=== PATIENT | male | born 1940 | race Caucasian/White ===

== ENCOUNTER → 2018-11-24 | Outpatient (REF) | payer MEDICARE, OTHER | LOC: M LAB REF 09:12 | PROVIDERS: ATTEND Physician Assistant Medical | DX: R30.0 Dysuria (principal) ==

== ENCOUNTER → 2019-05-09 | Outpatient (CLI) | payer OTHER ==
--- NOTE | 2019-05-09 14:16 | REP ---
Bilateral arterial Doppler lower extremity ultrasound: History: Personal history of venous thrombosis and embolism. Peripheral vascular disease. Findings: The ankle brachial indices could not be acquired on either side due to noncompressible vessels. Mild to moderate plaquing is seen diffusely. Heavily calcified vessel ramey are observed distally bilaterally. Disparate velocities are observed in the common femoral arteries, right less than left; question inflow disease on the right versus stenosis on the left. No other evidence of significant stenosis is seen. Monophasic waveforms are noted in the posterior tibial arteries bilaterally. Right lower extremity arterial Doppler velocity chart: Right CF A 82 cm/S Profunda 73 Proximal SFA 113 Mid SFA 142 Distal SFA 141 Popliteal 93 Proximal AT A 55 Tibioperoneal trunk 79 Proximal HR ADVISOR 74 Distal HR ADVISOR 139 Distal AT A 152 Left lower extremity arterial Doppler velocity chart: Left CF A 136 cm/S Profunda 91 Proximal SFA 123 Mid SFA 142 Distal SFA 142 Popliteal 55 Proximal AT A 117 Tibioperoneal trunk 107 Proximal HR ADVISOR 30 Distal HR ADVISOR 100 Distal AT A 107 Electronically Signed by Jesús Morillo MD 05/09/2019 02:07 P
== END ==
LOC: M RAD 10:22
PROVIDERS: ATTEND Physician Assistant
DX: I73.9 Peripheral vascular disease, unspecified (principal); M79.661 Pain in right lower leg; M79.662 Pain in left lower leg; Z86.711 Personal history of pulmonary embolism; Z86.718 Personal history of other venous thrombosis and embolism

== ENCOUNTER 2019-05-24 06:05 | Day surgery (SDC) | payer OTHER ==
[~2019-05-24] VITALS: Ht 188 cm; Wt 128.4 kg
[~2019-05-24 06:05] MED LIST: AMLO-360 PO; FERR325T3 PO; LEVE1INJ5 SC; LEVO137T2 PO; LR 1,000 ML IV ONE; NOVOINJ3 SC; OMEP10CASR PO; SERT25TA85 PO; SIMV40TA20 PO; STIO1AER IN; VITA500079 PO; XARE10TA PO; ceFAZolin SOD 2 GM in IV 1 EA IV ONE
[2019-05-24] MEDS ORDERED: ROCURONIUM BROMIDE 50 MG/5 ML VIAL As Ordered ONE (07:13)
[2019-05-24] MEDS ORDERED: LIDOCAINE 2% INJ 100 MG/5 ML SDV (FOR ANES.) As Ordered ONE (07:13)
[2019-05-24] MEDS ORDERED: fentaNYL 250 MCG/5 ML INJECTION (J3010) As Ordered ONE (07:13)
[2019-05-24] MEDS ORDERED: propofoL 200 MG/20 ML VIAL As Ordered ONE (07:13)
[2019-05-24] MEDS ORDERED: MIDAZOLAM INJ 2 MG/2 ML VIAL (J2250) As Ordered ONE (07:13)
[2019-05-24] MEDS ORDERED: BUPIVACAINE HCL 0.25% 30 ML VIAL As Ordered ONE (07:14)
[2019-05-24] MEDS ORDERED: LIDOCAINE 1% SDV INJ 30 ML VIAL As Ordered ONE (07:14)
[2019-05-24] MEDS ORDERED: SCOPOLAMINE 1MG TRANSDERMAL PATCH As Ordered ONE (07:20)
[2019-05-24] MEDS ORDERED: SCOPOLAMINE 1MG TRANSDERMAL PATCH TOP ONE (07:30)
[2019-05-24] MEDS ORDERED: METOCLOPRAMIDE INJ 10MG/2ML VIAL (J2765) As Ordered ONE ×2 (08:00→08:02)
[2019-05-24] MEDS ORDERED: KETOROLAC 60 MG/2 ML VIAL (J1885) As Ordered ONE ×2 (08:00→08:02)
[2019-05-24] MEDS ORDERED: ONDANSETRON 4MG/2ML VIAL (J2405) As Ordered ONE ×2 (08:00→08:02)
[2019-05-24] MEDS ORDERED: diphenhydrAMINE INJ 50MG/ML VIAL (J1200) As Ordered ONE (08:02)
[2019-05-24] MEDS ORDERED: ACETAMINOPHEN 1000MG 100ML IV BTL (OFIRMEV) (J0131 PER 10MG) As Ordered ONE (08:05)
[2019-05-24] MEDS ORDERED: SUGAMMADEX SODIUM 500 MG/5 ML VIAL (BRIDION) As Ordered ONE (08:05)
[2019-05-24] MEDS ORDERED: NORC1TAB7 PO (09:02)
--- NOTE | 2019-05-24 09:04 | ROOPDOC ---
[facility] Report Of Operation Report of Operation DATE OF PROCEDURE: 05/24/19 PREPROCEDURE DIAGNOSES: umbilical hernia. POSTPROCEDURE DIAGNOSES: umbilical hernia. PROCEDURE: Umbilical Hernia Repair. SURGEON: Sebastian Pereira MD CORN CUTTER OPERATOR: ANESTHESIA: General Anesthesia. ESTIMATED BLOOD LOSS: Approximately 10 mL. COMPLICATIONS: none. REMARKS: 2x1 cm defect at the umbilicus containing preperitoneal fat tissue. PROCEDURE NOTE: 6.4 cm ventral patch mesh placed at a preperitoneal pocket with closure of defect. DESCRIPTION OF PROCEDURE Patient was given 2 g Ancef IV preoperatively for surgical prophylaxis. He was brought to the operating room, placed supine on the table. Compression boots were placed on both lower extremities for DVT prophylaxis. Gen. endotracheal anesthesia started. His abdomen was widely prepped and draped in usual sterile f ashion.We paused for a surgical timeout using both pre-incision safety checklist to verify correct patient, procedure site and additional clinical information prior to beginning the procedure Patient has a (1.5 cm) small nodular bulging at the top of the umbilical cleft consistent with a small umbilical hernia. This appears to be partially incarcerated though on general anesthesia this promptly reduced. The area around the umbilicus was widely infiltrated with local anesthesia using 1% lidocaine and 1/4% Marcaine mixture. A curvilinear skin incision was created at the bottom of the umbilical cleft and slowly deepened through the subcutaneous tissue. Umbilical skin cleft was dissected free off the underlying tissues. The left over fatty tissue attached to umbilical cleft was debrided. The fascial opening this roughly about 2 x 1 cm oriented more transversely. The fascia surrounding the hernia opening was cleared. I used my finger to swept inside look for any adhesions or bowels underneath. I lifted the fascia and a preperitoneal pocket was circumferentially opened up and dissected to accommodate the mesh. I then introduced a piece of 4 x 4 gauze to further dissect the preperitoneal pocket. The peritoneal opening was sutured with 2-0 Vicryl. After checking for hemostasis, a 6.4 cm round ventral patch mesh was introduced into the preperitoneal pocket and made sure that it was lying flat. The mesh was secured to the anterior fascia with 0 Ethibond at the 12 and 6 o'clock position. The subcutaneous tissue was dissected free off the anterior fascia for about 2 cm. The edges were freshened up and appears to be able to come together without t ension. This was closed with mattress sutures of 0 vicrl incorporating part of the flap of the mesh on closure which was trimmed off. The umbilical cleft id tacked back in its anatomic position using 3-0 Vicryl. Subcutaneous space was closed with interrupted sutures of 3-0 Vicryl. Subcuticular suture using 4-0 Monocryl was then used to close the skin. Steri-Strips and gauze dressings were placed for wound coverage. Patient tolerated procedure well. Was promptly awakened, extubated and brought to recovery room in stable condition. SEBASTIAN PEREIRA MD May 24, 2019 09:04
[2019-05-24] MEDS ORDERED: NORCO, ANEXSIA 5/325MG TABLET (HYDROcodone/ACETAMINOPHEN) PO PRN (09:15)
[2019-05-24] MEDS ORDERED: oxyCODONE 5MG TAB PO PRN (09:15)
[2019-05-24] MEDS ORDERED: LR 1,000 ML IV SCH (09:15)
[2019-05-24] MEDS ORDERED: ONDANSETRON 4MG/2ML VIAL (J2405) IV PRN ×2 (09:15)
[2019-05-24] MEDS ORDERED: HYDROMORPHONE HCL 0.5 MG/ 0.5 ML SYRINGE (J1170 PER 1) IV PRN (09:15)
[2019-05-24] MEDS ORDERED: fentaNYL 100 MCG/2 ML INJECTION (J3010) IV PRN (09:15)
[2019-05-24] MEDS ORDERED: LABETALOL HCL 100 MG/20 ML VIAL As Ordered ONE (09:30)
[2019-05-24 10:55] VITALS: BP 148/69
[2019-05-24] MEDS ORDERED: KETOROLAC 30 MG/ML VIAL (J1885) IV PRN (15:00)
== END 2019-05-24 11:15 | disposition home or self-care (01) ==
LOC: M SDC 06:05
PROVIDERS: ATTEND Surgery
DX: K42.9 Umbilical hernia without obstruction or gangrene (principal); E11.9 Type 2 diabetes mellitus without complications; I10 Essential (primary) hypertension; K21.9 Gastro-esophageal reflux disease without esophagitis; K44.9 Diaphragmatic hernia without obstruction or gangrene; F32.9 Major depressive disorder, single episode, unspecified; Z87.891 Personal history of nicotine dependence; Z79.01 Long term (current) use of anticoagulants; Z79.899 Other long term (current) drug therapy; Z79.4 Long term (current) use of insulin
CPT/HCPCS: 49585; C1781; J0131; J0690; J1200; J1885; J2250; J2405; J2765; J3010

== ENCOUNTER → 2019-07-15 | Outpatient (CLI) | payer OTHER ==
[~2019-07-15] MED LIST changes: +ISOVUE-300 61% 50ML VIAL As Ordered ONE; +LIDOCAINE 1% MDV 20ML VIAL As Ordered ONE; -LR 1,000 ML IV ONE; +MIDAZOLAM INJ 2MG/2ML VIAL (J2250 PER 1MG) As Ordered ONE; +NORC1TAB7 PO; -ceFAZolin SOD 2 GM in IV 1 EA IV ONE; +fentaNYL 100 MCG/2 ML INJECTION (J3010) As Ordered ONE
[2019-07-15 09:12] LABS: HEMATOCRIT 37.6 % (42.0-52.0); HEMOGLOBIN 12.2 g/dl (13.5-17.5); MEAN CORPUSCULAR HEMOGLOBIN 28.8 pg (27.0-33.0); MEAN CORPUSCULAR HGB CONC 32.4 g/dl (32.0-36.5); MEAN CORPUSCULAR VOLUME 88.9 fl (80.0-96.0); PLATELET COUNT, AUTOMATED 168 10^3/uL (150-450); RED BLOOD COUNT 4.23 10^6/uL (4.30-6.10); WHITE BLOOD COUNT 6.4 10^3/uL (4.0-10.0)
[2019-07-15 09:38] LABS: ALBUMIN 3.5 GM/DL (3.2-5.2); ALT/SGPT 38 U/L (12-78); BILIRUBIN,TOTAL 0.3 MG/DL (0.2-1.0); BLOOD UREA NITROGEN 26 MG/DL (7-18); CARBON DIOXIDE LEVEL 30 MEQ/L (21-32); CHLORIDE LEVEL 104 MEQ/L (98-107); GLOMERULAR FILTRATION RATE > 60.0 (>42); GLUCOSE, FASTING 173 MG/DL (70-100); POTASSIUM SERUM 3.9 MEQ/L (3.5-5.1); SODIUM LEVEL 139 MEQ/L (136-145); TOTAL PROTEIN 7.9 GM/DL (6.4-8.2)
--- NOTE | 2019-07-15 10:23 | ROOPDOC ---
[facility] Report Of Operation Report of Operation DATE OF PROCEDURE: 07/15/19 PREPROCEDURE DIAGNOSES: Atherosclerosis the andreafski vessels with leg pain, tingling, numbness POSTPROCEDURE DIAGNOSES: Same PROCEDURE: 1. Ultrasound-guided access right common femoral artery 2. Aortoiliofemoral arteriogram 3. Selection of left common femoral artery and left superficial femoral artery with left lower extremity runoff 4. Mynx closure right common femoral artery SURGEON: Isaura Baires MD ANESTHESIA: Local anesthesia 6 mL lidocaine. Moderate intravenous conscious sedation was supervised by Dr. Baires. The patient was independently monitored by a registered nurse assigned to the Department of radiology using automated blood pressure, EKG, and pulse oximetry. The detailed sedation record is permanently stored in the hospital information system. The following is a brief sedation record: Start time 09:31, stop time 09:50, Versed 0.5 mg IV, fentanyl 25 g IV. CONTRAST: 27 mL Isovue-300 INDICATION FOR PROCEDURE: Mr. Meraz is a 78-year-old gentleman with lower extremity pain, numbness and tingling. After discussing with the patient, I'm not sure a displaced classic claudication symptoms so much as neurogenic symptoms, and he does have a history of lower back surgery and interventions. However, his arterial duplex did suggest possible inflow disease in the right iliac system and distal external iliac versus common femoral artery disease on the left. Therefore, to rule out arterial disease is a confounding factor for his extremity issues, we discussed the risks benefits and alternatives to an arteriogram potential intervention. He is agreeable to proceed. Informed consent was obtained. INTERPRETATION: 1. The aortoiliofemoral segments are mildly calcified and ectatic, not flow- limiting, and overall large and widely patent. The common iliac arteries, hypogastric arteries, and external iliac artery showed no flow-limiting stenosis. 2. The left common femoral artery is widely patent and runs off 3 widely patent profunda and superficial femoral artery. The superficial femoral artery has mild plaque that is not flow-limiting, and runs off through a widely patent popliteal artery. There are small areas of the popliteal artery that are obstructed by orthopedic hardware, but the flow past these areas is a very rapid without any inhibition, and I do not suspect that we are missing stenosis behind hardware based on how rapidly flow passes through this area. The patient has widely patent and large tibial vessels, and has 3 vessel runoff through the anterior tibial artery, peroneal artery, and posterior tibial artery all the way to the distal foot. No significant tibial disease is noted. REPORT OF OPERATION: The patient was brought to the angiographic suite in stable condition. His bilateral groins were prepped and draped in a sterile fashion. A timeout was performed. Sedation was administered without complication. Local anesthesia was administered to the skin and subcutaneous tissue over the right groin. A microneedle was used to access the artery under ultrasound guidance. A wire was passed through this access under fluoroscopic guidance and the needle was removed. A 4 [place] glide sheath was placed and flushed with saline. Through this access, a Glidewire and Omni flushed catheter were advanced into the distal aorta. Aortoiliofemoral arteriograms were performed. Please interpretation above. We then went up and over the bifurcation with the Glidewire and Omni flushed catheter and selected the left common femoral artery. Further left lower extremity arteriograms were performed. We then selected the left superficial femoral artery and advanced the catheter into the mid left superficial femoral artery and runoff of the left lower extremity was performed. Please interpretation above. Following this, we did not see any flow-limiting stenoses that required intervention. Therefore, the sheath was exchanged over the wire for 5 [place] sheath and a Mynx closure device was deployed. Pressure was held over the access site for 10 minutes and sterile dressings were applied. The patient was taken to recovery in stable condition. There were no complications. The patient tolerated the procedure and the sedation well. ESTIMATED BLOOD LOSS: Approximately 5 mL. COMPLICATIONS: None. PLAN: It is okay for the patient to resume his home diet medications. We will see him back within a week to check his right groin access site. At this time, no vascular intervention is required and we recommend the patient follow up with his primary care doctor to discuss any further workup that might be necessary for his neurogenic symptoms. We appreciate the opportunity to participate in the care of this patient. ISAURA BAIRES MD July 15, 2019 10:23
[2019-07-15 12:25] VITALS: BP 166/79
== END ==
LOC: M IRPRO 08:28
PROVIDERS: ATTEND Surgery Vascular Surgery
DX: I70.222 Atherosclerosis of native arteries of extremities with rest pain, left leg (principal); I70.212 Atherosclerosis of native arteries of extremities with intermittent claudication, left leg; I87.2 Venous insufficiency (chronic) (peripheral); Z79.01 Long term (current) use of anticoagulants; Z79.84 Long term (current) use of oral hypoglycemic drugs; Z79.899 Other long term (current) drug therapy; Z86.718 Personal history of other venous thrombosis and embolism; Z87.891 Personal history of nicotine dependence; Z88.8 Allergy status to other drugs, medicaments and biological substances
CPT/HCPCS: 36247; 75630; 75774; 80053; 85027; 99152; C1760; C1769; C1887; C1894; G0269; J1644; J2250; J3010; Q9967

== ENCOUNTER 2020-06-23 14:45 | Emergency (ER) | payer OTHER ==
[~2020-06-23] VITALS: Ht 188 cm; Wt 125.5 kg
[~2020-06-23 14:45] MED LIST changes: -ISOVUE-300 61% 50ML VIAL As Ordered ONE; -LIDOCAINE 1% MDV 20ML VIAL As Ordered ONE; -MIDAZOLAM INJ 2MG/2ML VIAL (J2250 PER 1MG) As Ordered ONE; -fentaNYL 100 MCG/2 ML INJECTION (J3010) As Ordered ONE
--- NOTE | 2020-06-23 15:25 | REP ---
INDICATION: fall/takes xarelto. COMPARISON: None. TECHNIQUE: Axial CT images with multiplanar reformations. FINDINGS: No acute bleed or fracture. Ventricles, cisterns and sulci are within normal limits. No mass effect or midline shift. No abnormal fluid collections. A few scattered hypodensities, are noted with a more significant hypodensity adjacent to the right caudate, are most consistent with sequelae of chronic microvascular ischemic disease. Paranasal sinuses and mastoid air cells are clear. IMPRESSION: No acute findings. <Electronically signed by Torrey Hopkins > 06/23/20 1524
--- NOTE | 2020-06-23 15:37 | REP ---
INDICATION: fall/takes xarelto. COMPARISON: None. TECHNIQUE: Axial CT images with multiplanar reformations. FINDINGS: No acute fracture or malalignment. There is straightening of the cervical spine absence of normal cervical lordosis. There is severe degenerative change with loss of disc height, anterior osteophytic spurring, and degenerative vertebral body flattening. The craniovertebral junction appears unremarkable. There is partial fusion of C2 and C3 both anterior and posterior elements. On the sagittal T2 weighted images, no definite or high-grade osseous canal stenosis. On the review of axial images: At C2-3: Disc-osteophyte complex with dtau-ln-veygqzqi canal narrowing and moderate bilateral foraminal narrowing. At C3-4: Disc-osteophyte complex with bjpx-zb-bmngxqdq canal narrowing and moderate bilateral foraminal narrowing. At C4-5: Disc-osteophyte complex with wojt-gn-hnykdneq canal narrowing and moderate bilateral foraminal narrowing. At C5-6: Disc-osteophyte complex with hjsm-sa-dxrocsls canal narrowing and moderate bilateral foraminal narrowing. At C6-7: Disc-osteophyte complex with slux-mi-tndxbyan canal narrowing and moderate bilateral foraminal narrowing, greater on the right. At C7-T1: No significant canal or foraminal narrowing. IMPRESSION: No acute findings. Degenerative changes as described. <Electronically signed by Torrey Hopkins > 06/23/20 1530
[2020-06-23] MEDS ORDERED: ACETAMINOPHEN 500 MG TAB PO ONE (16:45)
--- NOTE | 2020-06-23 21:15 | REPVR ---
PROCEDURE INFORMATION: Exam: MR Cervical Spine Without Contrast Exam date and time: 06/23/2020 7:56 PM Age: 79 years old Clinical indication: Injury or trauma; Fall; Blunt trauma; Injury date: 06/18; Injury details: PT tripped and fell face down, when he went to get up he had no strength or ability to move in either arm and then when feeling came back there was still weakness and tingling in bilateral hands. PT cx of continued weakness in arms today but not as bad, and also continued tingling and numbness in his hands. ; Additional info: Trauma - paresthesias in upper extremity ? central cord TECHNIQUE: Imaging protocol: Multiplanar magnetic resonance images of the cervical spine without contrast. COMPARISON: CT Spine,cervical w/o contrast 06/23/2020 2:57 PM FINDINGS: Nonspecific straightening. Mild retrolisthesis of C4 on C5. Grade 1 anterolisthesis of C5 on C6. Vertebral body heights are preserved. Multilevel disc desiccation and disc space narrowing. No definite increased cord signal or cord expansion. No epidural fluid collection. C2-C3: Mild to moderate disc osteophyte complex with bilateral uncinate spurring. There is bnmw-dw-hbxsyrot central canal stenosis and moderate bilateral foraminal stenosis. C3-C4: Moderate disc osteophyte complex with bilateral uncinate spurring. There is severe central canal stenosis and severe bilateral foraminal stenosis. C4-C5: Moderate to large disc osteophyte complex with bilateral uncinate spurring. Severe central canal stenosis and severe bilateral foraminal stenosis. C5-C6: Cvzb-oi-rlnmumai disc osteophyte complex with bilateral uncinate spurring. There is mild central canal stenosis and severe bilateral foraminal stenosis. C6-C7: Ocjw-sa-zdvmspxk disc osteophyte complex with bilateral uncinate spurring. Mild central canal stenosis and severe bilateral foraminal stenosis. C7-T1: Mild disc osteophyte complex without significant stenosis. IMPRESSION: Severe central canal stenosis at C3-C4 and C4-C5 as above with mass effect upon the cervical cord. Surgical consultation is recommended. Electronically signed by: Fredy Stephen On 06/23/2020 21:15:54 PM
--- NOTE | 2020-06-23 21:17 | REPVR ---
PROCEDURE INFORMATION: Exam: MR Thoracic Spine Without Contrast Exam date and time: 06/23/2020 7:56 PM Age: 79 years old Clinical indication: Injury or trauma; Blunt trauma (contusions or hematomas); Injury date: Fall 06/18; Injury details: PT tripped and fell face down, when he went to get up he had no strength or ability to move in either arm and then when feeling came back there was still weakness and tingling in bilateral hands. PT cx of continued weakness in arms today but not as bad, and also continued tingling and numbness in his hands. ; Additional info: Trauma - paresthesias in upper extremity ? central cord TECHNIQUE: Imaging protocol: Multiplanar magnetic resonance images of the thoracic spine without intravenous contrast. COMPARISON: No relevant prior studies available. FINDINGS: Vertebral body height and AP alignment is preserved. Multilevel disc desiccation. No evidence of discitis/osteomyelitis. No abnormal cord signal or cord expansion. No epidural fluid collection. There is thoracic spine degenerative disc disease with multilevel small bulges and protrusions. No significant central canal compromise throughout. IMPRESSION: 1. No acute abnormality. 2. Multilevel small disc bulges/protrusions without significant central canal compromise. Electronically signed by: Fredy Stephen On 06/23/2020 21:17:53 PM
[2020-06-23] MEDS ORDERED: HYDR-3713 PO ×2 (22:12→22:19)
[2020-06-23 22:21] VITALS: BP 180/88
[2020-06-23] MEDS ORDERED: NORCO 5/325MG TABLET (BULK FOR ED) PO ONE (22:25)
== END 2020-06-23 23:22 | disposition home or self-care (01) ==
LOC: M ED 14:45
DX: S00.03XA Contusion of scalp, initial encounter (principal); M54.12 Radiculopathy, cervical region; M48.02 Spinal stenosis, cervical region; M50.31 Other cervical disc degeneration, high cervical region; M50.321 Other cervical disc degeneration at C4-C5 level; M50.322 Other cervical disc degeneration at C5-C6 level; M50.323 Other cervical disc degeneration at C6-C7 level; W01.0XXA Fall on same level from slipping, tripping and stumbling without subsequent striking against object, initial encounter; Y92.098 Other place in other non-institutional residence as the place of occurrence of the external cause; Y93.01 Activity, walking, marching and hiking; Y99.8 Other external cause status; E11.40 Type 2 diabetes mellitus with diabetic neuropathy, unspecified; J44.9 Chronic obstructive pulmonary disease, unspecified; G47.30 Sleep apnea, unspecified; E07.9 Disorder of thyroid, unspecified; Z86.718 Personal history of other venous thrombosis and embolism; Z87.891 Personal history of nicotine dependence; Z88.8 Allergy status to other drugs, medicaments and biological substances; Z79.899 Other long term (current) drug therapy; Z79.01 Long term (current) use of anticoagulants; Z79.4 Long term (current) use of insulin

== ENCOUNTER → 2020-09-29 | Outpatient (REF) | payer OTHER, MEDICARE ==
[~2020-09-29] MED LIST changes: +HYDR-3713 PO
[2020-09-29 18:37] LABS: APPEARANCE, URINE CLEAR (CLEAR); BACTERIA, URINE AUTO NEGATIVE (NEGATIVE); BILIRUBIN, URINE AUTO NEGATIVE (NEGATIVE); BLOOD, URINE BLOOD NEGATIVE (NEGATIVE); COLOR, URINE YELLOW (YELLOW); GLUCOSE, URINE (UA) AUTO NEGATIVE (NEGATIVE); KETONE, URINE AUTO NEGATIVE (NEGATIVE); LEUKOCYTE ESTERASE, URINE AUTO TRACE (NEGATIVE); NITRITE, URINE AUTO NEGATIVE (NEGATIVE); PROTEIN, URINE AUTO NEGATIVE (NEGATIVE); RBC, URINE AUTO 1 /HPF (0-3); SPECIFIC GRAVITY URINE AUTO 1.009 (1.002-1.035); SQUAMOUS EPITHELIAL CELL UR AU 1 /HPF (0-6); UROBILINOGEN, URINE AUTO 0.2 mg/dL (0.0-2.0); WBC, URINE AUTO 4 /HPF (0-3)
== END ==
LOC: M SMT 16:53
PROVIDERS: ATTEND Nurse Practitioner Family
DX: R30.0 Dysuria (principal)

== ENCOUNTER → 2020-11-09 | Outpatient (CLI) | payer OTHER, MEDICARE ==
[~2020-11-09] MED LIST changes: +D31000TA2 PO; +LOSA25TA14 PO; +MAGN100T PO; +METF-877 PO
== END ==
LOC: M LABSMTC 11:41
PROVIDERS: ATTEND Anesthesiology
DX: Z01.812 Encounter for preprocedural laboratory examination (principal); Z20.822 Contact with and (suspected) exposure to COVID-19

== ENCOUNTER 2020-11-13 10:44 | Day surgery (SDC) | payer OTHER ==
[~2020-11-13] VITALS: Ht 182.9 cm; Wt 130.8 kg
[~2020-11-13 10:44] MED LIST changes: +LR 1,000 ML IV ONE; +ceFAZolin SOD 1 GM in D5W MINI-BAG PLUS 50 ML IV ONE; +ceFAZolin SOD 2 GM in IV 1 EA IV ONE
[2020-11-13] MEDS ORDERED: SCOPOLAMINE 1MG TRANSDERMAL PATCH TOP ONE (12:15)
[2020-11-13] MEDS ORDERED: BACITRACIN OINTMENT 30GM TUBE As Ordered ONE (13:08)
[2020-11-13] MEDS ORDERED: ONDANSETRON 4MG/2ML VIAL As Ordered ONE (13:10)
[2020-11-13] MEDS ORDERED: LIDOCAINE 2% 100MG/5ML SDV (FOR ANES.) As Ordered ONE (13:10)
[2020-11-13] MEDS ORDERED: dexameTHASONE 4 MG/ML 1ML VIAL (J1100 PER 1MG) As Ordered ONE (13:10)
[2020-11-13] MEDS ORDERED: propofoL 200 MG/20 ML VIAL As Ordered ONE (13:10)
[2020-11-13] MEDS ORDERED: fentaNYL 100 MCG/2 ML INJECTION (J3010) As Ordered ONE (13:11)
[2020-11-13] MEDS ORDERED: MIDAZOLAM INJ 2MG/2ML VIAL (J2250 PER 1MG) As Ordered ONE (13:11)
[2020-11-13] MEDS ORDERED: METOCLOPRAMIDE INJ 10MG/2ML VIAL (J2765 PER 1) As Ordered ONE (13:43)
[2020-11-13] MEDS ORDERED: GLYCOPYRROLATE INJ 0.2 MG/ML 2 ML VIAL As Ordered ONE (13:45)
[2020-11-13] MEDS ORDERED: ACETAMINOPHEN 1000MG 100ML IV BTL (OFIRMEV) (J0131 PER 10MG) As Ordered ONE (13:53)
[2020-11-13] MEDS ORDERED: OXYC1TAB23 PO (15:38)
--- NOTE | 2020-11-13 15:52 | RO ---
OPERATIVE NOTE DATE OF OPERATION: 11/13/2020 PREOPERATIVE DIAGNOSIS: Phimosis. POSTOPERATIVE DIAGNOSIS: Phimosis. PROCEDURE: Circumcision. SURGEON: Dr. Yovanny Alvarenga CASTER OPERATOR: None. ANESTHESIA: General. OPERATIVE INDICATIONS: This 80-year-old male desired a circumcision. He is brought to the operating room today for the above-listed procedure. DESCRIPTION OF PROCEDURE: The patient was brought to the operating room, and general anesthesia was induced. Prophylactic antibiotics were infused. He was then placed in the supine position and prepped and draped in the usual sterile fashion. At this point, circumcising incisions were made at the level of the coronal sulcus with the foreskin retracted off the glans and also with it pulled on top of the glans. All the skin in between the two circumcising incisions was then removed using electrocautery. Once that was done, any small bleeding vessels were controlled with electrocautery. Once satisfied with hemostasis, the remaining skin on the penile shaft was reapproximated to the glans using interrupted 3-0 chromic suture. After that was done, dressings were applied, including a Ayaan and a Coban, and once the dressings were applied this marked the conclusion of the procedure. The patient was then awakened from anesthesia and transported to the recovery room in stable condition. ESTIMATED BLOOD LOSS: 10 mL. COMPLICATIONS: None. SPECIMENS: Foreskin. PLAN: The patient will be discharged home. He will leave his dressing on for 2 days and then remove it in the shower. He will followup in urology clinic in approximately 2-3 weeks for a postoperative visit. YOVANA
[2020-11-13 16:30] VITALS: BP 139/69
== END 2020-11-13 16:44 | disposition home or self-care (01) ==
LOC: M SDC 10:44
PROVIDERS: ATTEND Urology
DX: N47.1 Phimosis (principal); E11.9 Type 2 diabetes mellitus without complications; E78.5 Hyperlipidemia, unspecified; G47.33 Obstructive sleep apnea (adult) (pediatric); M19.012 Primary osteoarthritis, left shoulder; Z79.01 Long term (current) use of anticoagulants; Z79.4 Long term (current) use of insulin; Z79.899 Other long term (current) drug therapy; Z87.891 Personal history of nicotine dependence
CPT/HCPCS: 54161; 88304; J0131; J0690; J1100; J2250; J2405; J2765; J3010

== ENCOUNTER → 2022-01-24 | Outpatient (CLI) | payer MEDICARE, OTHER ==
[~2022-01-24] MED LIST changes: +AMLO1TAB24 PO; +ASPI-1 PO; -D31000TA2 PO; +ECOT81TA5 PO; +FURO40TA2 PO; +INSUDET SC; +LOSA25TA13 PO; -LOSA25TA14 PO; -LR 1,000 ML IV ONE; +OMEP40CA5 PO; +OXYC1TAB23 PO; +SERT150C PO; +VITA100093 PO; -ceFAZolin SOD 1 GM in D5W MINI-BAG PLUS 50 ML IV ONE; -ceFAZolin SOD 2 GM in IV 1 EA IV ONE
== END ==
LOC: M LABSMTC 11:17
PROVIDERS: ATTEND Anesthesiology
DX: Z01.812 Encounter for preprocedural laboratory examination (principal); Z11.52 Encounter for screening for COVID-19

== ENCOUNTER → 2022-03-21 | Outpatient (CLI) | payer OTHER ==
[~2022-03-21] MED LIST changes: +CYCL5TAB PO
== END ==
LOC: M LABSMTC 10:37
PROVIDERS: ATTEND Anesthesiology
DX: Z01.818 Encounter for other preprocedural examination (principal); Z11.52 Encounter for screening for COVID-19

== ENCOUNTER 2022-03-24 06:51 | Day surgery (SDC) | payer OTHER ==
[~2022-03-24] VITALS: Ht 190.5 cm; Wt 126.6 kg
[~2022-03-24 06:51] MED LIST changes: +CYCLOPENTOLATE 1% OPHTH SOLN 2ML BTL OD SCH; +FLURBIPROFEN 0.03% OPHTH SOLN 2.5 ML OD SCH; +LIDOCAINE 1% 1ML PF SYRINGE (OR EYE CASES) As Ordered ONE; +MAXITROL OPHTH SUSP 5ML As Ordered ONE; +TETRACAINE 0.5% OPHTH SOLN 4ML OD SCH
[2022-03-24] MEDS ORDERED: LR 1,000 ML IV SCH (07:00)
[2022-03-24] MEDS ORDERED: MIDAZOLAM INJ 2MG/2ML VIAL As Ordered ONE (07:17)
[2022-03-24] MEDS ORDERED: LIDOCAINE 1% 1ML PF SYRINGE (OR EYE CASES) As Ordered ONE (08:16)
[2022-03-24 09:14] VITALS: BP 142/77
== END 2022-03-24 09:35 | disposition home or self-care (01) ==
LOC: M SDC 06:51
PROVIDERS: ATTEND Ophthalmology
DX: H25.11 Age-related nuclear cataract, right eye (principal); I10 Essential (primary) hypertension; E78.00 Pure hypercholesterolemia, unspecified; E11.9 Type 2 diabetes mellitus without complications; R09.1 Pleurisy; E03.9 Hypothyroidism, unspecified; K44.9 Diaphragmatic hernia without obstruction or gangrene; D64.9 Anemia, unspecified; Z86.718 Personal history of other venous thrombosis and embolism; M19.90 Unspecified osteoarthritis, unspecified site; F41.9 Anxiety disorder, unspecified; F32.A Depression, unspecified; G62.9 Polyneuropathy, unspecified; J44.9 Chronic obstructive pulmonary disease, unspecified; I35.9 Nonrheumatic aortic valve disorder, unspecified; Z79.899 Other long term (current) drug therapy; Z79.01 Long term (current) use of anticoagulants; Z79.82 Long term (current) use of aspirin; Z79.4 Long term (current) use of insulin; Z79.890 Hormone replacement therapy; Z79.84 Long term (current) use of oral hypoglycemic drugs; Z88.8 Allergy status to other drugs, medicaments and biological substances
CPT/HCPCS: 66984; V2632

== ENCOUNTER → 2022-04-18 | Outpatient (CLI) | payer OTHER, MEDICARE ==
[~2022-04-18] MED LIST changes: -CYCLOPENTOLATE 1% OPHTH SOLN 2ML BTL OD SCH; -FLURBIPROFEN 0.03% OPHTH SOLN 2.5 ML OD SCH; -LIDOCAINE 1% 1ML PF SYRINGE (OR EYE CASES) As Ordered ONE; -MAXITROL OPHTH SUSP 5ML As Ordered ONE; +SERT-141 PO; +SYNT125T PO; -TETRACAINE 0.5% OPHTH SOLN 4ML OD SCH; +ZOLO100T PO; +[UNRECOGNIZED DRUG - REMARK]
== END ==
LOC: M LABSMTC 10:43
PROVIDERS: ATTEND Anesthesiology
DX: Z01.812 Encounter for preprocedural laboratory examination (principal); Z11.52 Encounter for screening for COVID-19

== ENCOUNTER 2022-04-21 06:24 | Day surgery (SDC) | payer MEDICARE, OTHER ==
[~2022-04-21] VITALS: Ht 185.4 cm; Wt 129.3 kg
[~2022-04-21 06:24] MED LIST changes: +CYCLOPENTOLATE 1% OPHTH SOLN 2ML BTL OS SCH; +FLURBIPROFEN 0.03% OPHTH SOLN 2.5 ML OS SCH; +TETRACAINE 0.5% OPHTH SOLN 4ML OS SCH
[2022-04-21] MEDS ORDERED: LIDOCAINE 1% SDV 5ML VIAL As Ordered ONE (06:40)
[2022-04-21] MEDS ORDERED: MAXITROL OPHTH SUSP 5ML As Ordered ONE (06:41)
[2022-04-21] MEDS ORDERED: LR 1,000 ML IV SCH (07:00)
[2022-04-21] MEDS ORDERED: MIDAZOLAM INJ 2MG/2ML VIAL As Ordered ONE (07:12)
[2022-04-21 09:06] VITALS: BP 133/77
== END 2022-04-21 09:10 | disposition home or self-care (01) ==
LOC: M SDC 06:24
PROVIDERS: ATTEND Ophthalmology
DX: H25.12 Age-related nuclear cataract, left eye (principal); I10 Essential (primary) hypertension; I35.9 Nonrheumatic aortic valve disorder, unspecified; E78.00 Pure hypercholesterolemia, unspecified; E11.9 Type 2 diabetes mellitus without complications; E03.9 Hypothyroidism, unspecified; K21.9 Gastro-esophageal reflux disease without esophagitis; Z86.718 Personal history of other venous thrombosis and embolism; J44.9 Chronic obstructive pulmonary disease, unspecified; Z79.899 Other long term (current) drug therapy; Z79.82 Long term (current) use of aspirin; Z79.4 Long term (current) use of insulin; Z79.84 Long term (current) use of oral hypoglycemic drugs; Z79.01 Long term (current) use of anticoagulants; Z88.8 Allergy status to other drugs, medicaments and biological substances
CPT/HCPCS: 66984; 92015; J2250; V2632

== ENCOUNTER → 2022-10-17 | Outpatient (REF) | payer OTHER ==
[~2022-10-17] MED LIST changes: -CYCLOPENTOLATE 1% OPHTH SOLN 2ML BTL OS SCH; -FLURBIPROFEN 0.03% OPHTH SOLN 2.5 ML OS SCH; +INSU100I6 SC; -LEVE1INJ5 SC; -TETRACAINE 0.5% OPHTH SOLN 4ML OS SCH
[2022-10-17 22:22] LABS: APPEARANCE, URINE CLEAR (CLEAR); BACTERIA, URINE AUTO 2+ (NEGATIVE); BILIRUBIN, URINE AUTO NEGATIVE (NEGATIVE); BLOOD, URINE BLOOD 1+ (NEGATIVE); COLOR, URINE YELLOW (YELLOW); GLUCOSE, URINE (UA) AUTO NEGATIVE (NEGATIVE); KETONE, URINE AUTO NEGATIVE (NEGATIVE); LEUKOCYTE ESTERASE, URINE AUTO TRACE (NEGATIVE); MUCUS, URINE SMALL (NEGATIVE); NITRITE, URINE AUTO NEGATIVE (NEGATIVE); PROTEIN, URINE AUTO 1+ mg/dL (NEGATIVE); RBC, URINE AUTO 6 /HPF (0-3); SPECIFIC GRAVITY URINE AUTO 1.018 (1.002-1.035); SQUAMOUS EPITHELIAL CELL UR AU 1 /HPF (0-6); UROBILINOGEN, URINE AUTO 0.2 mg/dL (0.0-2.0); WBC, URINE AUTO 10 /HPF (0-3)
== END ==
LOC: M LAB REF 21:59
PROVIDERS: ATTEND Physician Assistant Medical
DX: N39.0 Urinary tract infection, site not specified (principal)

== ENCOUNTER → 2022-12-13 | Outpatient (CLI) | payer MEDICARE, OTHER ==
[~2022-12-13] MED LIST changes: +TRIAMCINOLONE ACETONIDE SUSP 40MG/ML 1ML VIAL As Ordered ONE
== END ==
LOC: M PAIN 12:45
PROVIDERS: ATTEND Anesthesiology
DX: M79.18 Myalgia, other site (principal); F41.9 Anxiety disorder, unspecified; I10 Essential (primary) hypertension; E78.5 Hyperlipidemia, unspecified; G47.30 Sleep apnea, unspecified; M25.512 Pain in left shoulder; E11.51 Type 2 diabetes mellitus with diabetic peripheral angiopathy without gangrene; Z86.718 Personal history of other venous thrombosis and embolism; I25.9 Chronic ischemic heart disease, unspecified; Z87.891 Personal history of nicotine dependence; Z79.890 Hormone replacement therapy; Z79.4 Long term (current) use of insulin; Z79.891 Long term (current) use of opiate analgesic; Z79.01 Long term (current) use of anticoagulants; Z79.899 Other long term (current) drug therapy; Z88.8 Allergy status to other drugs, medicaments and biological substances
CPT/HCPCS: 20552; J0665; J3301

== ENCOUNTER → 2023-02-14 | Outpatient (CLI) | payer MEDICARE, OTHER ==
[~2023-02-14] MED LIST changes: -TRIAMCINOLONE ACETONIDE SUSP 40MG/ML 1ML VIAL As Ordered ONE
== END ==
LOC: M PAIN 10:15
PROVIDERS: ATTEND Nurse Practitioner Family
DX: M79.10 Myalgia, unspecified site (principal); G89.29 Other chronic pain; Z86.14 Personal history of Methicillin resistant Staphylococcus aureus infection; Z87.891 Personal history of nicotine dependence; Z88.8 Allergy status to other drugs, medicaments and biological substances; Z79.4 Long term (current) use of insulin; Z79.84 Long term (current) use of oral hypoglycemic drugs; Z79.899 Other long term (current) drug therapy

== ENCOUNTER 2023-04-17 13:49 | Emergency (ER) | payer MEDICARE, OTHER ==
[2023-04-17 13:51] VITALS: TEMP 98.3
[2023-04-17 18:10] LABS: BASO # 0.1 10^3/uL (0.0-0.2); BASO % 0.9 % (0.0-1.0); EOS # 0.3 10^3/uL (0.0-0.5); EOS % 3.9 % (0.0-3.0); HEMOGLOBIN 12.4 g/dl (13.5-17.5); LYMPH # 1.7 10^3/uL (1.5-5.0); LYMPH % 24.1 % (24.0-44.0); MEAN CORPUSCULAR HEMOGLOBIN 28.7 pg (27.0-33.0); MEAN CORPUSCULAR HGB CONC 32.6 g/dl (32.0-36.5); MONO # 0.6 10^3/uL (0.0-0.8); MONO % 8.1 % (2.0-8.0); NEUTROPHILS # 4.3 10^3/uL (1.5-8.5); NEUTROPHILS % 62.7 % (36.0-66.0); PLATELET COUNT, AUTOMATED 147 10^3/uL (150-450); RED BLOOD COUNT 4.32 10^6/uL (4.30-6.10); WHITE BLOOD COUNT 6.9 10^3/uL (4.0-10.0)
[2023-04-17 18:40] LABS: ALBUMIN 3.5 G/DL (3.2-5.2); ALKALINE PHOSPHATASE 59 U/L (46-116); ALT/SGPT 33 U/L (7.0-40); AST/SGOT 29 U/L (<34); BILIRUBIN,DIRECT 0.1 MG/DL (<0.4); BILIRUBIN,TOTAL 0.3 MG/DL (0.3-1.2); BLOOD UREA NITROGEN 28 MG/DL (9-23); CALCIUM LEVEL 9.5 MG/DL (8.3-10.6); CARBON DIOXIDE LEVEL 28 MMOL/L (20-31); CHLORIDE LEVEL 100 MMOL/L (98-107); CK-MB VALUE MASS 2.6 NG/ML (<3.6); CPK CREATINE PHOSPHOKINASE 131 U/L (46-171); CREATININE FOR GFR 0.91 MG/DL (0.70-1.30); GLOMERULAR FILTRATION RATE > 60.0 (>35); GLUCOSE, FASTING 141 MG/DL (74-106); MB/CK RELATIVE INDEX 1.98 (< OR =4); POTASSIUM SERUM 4.3 MMOL/L (3.5-5.1); SODIUM LEVEL 135 MMOL/L (136-145); TOTAL PROTEIN 7.7 G/DL (5.7-8.2)
[2023-04-17 18:42] LABS: FREE T4 1.27 NG/DL (0.89-1.76); THYROID STIMULATING HORMONE 0.829 uIU/ML (0.55-4.78)
[2023-04-17 19:55] LABS: CK-MB VALUE MASS 2.5 NG/ML (<3.6); MB/CK RELATIVE INDEX 2.08 (< OR =4)
[2023-04-17 21:48] LABS: CK-MB VALUE MASS 2.6 NG/ML (<3.6)
[2023-04-17 21:50] LABS: MB/CK RELATIVE INDEX 2.24 (< OR =4)
[2023-04-17 22:45] VITALS: BP 145/78; O2SAT 94
== END 2023-04-17 23:04 | disposition home or self-care (01) ==
LOC: M ED 13:49
DX: R42 Dizziness and giddiness (principal); R11.0 Nausea; R53.1 Weakness; E11.9 Type 2 diabetes mellitus without complications; L89.891 Pressure ulcer of other site, stage 1; M77.32 Calcaneal spur, left foot; Z91.81 History of falling; Z95.2 Presence of prosthetic heart valve; G31.1 Senile degeneration of brain, not elsewhere classified; I67.82 Cerebral ischemia; Z98.1 Arthrodesis status; Z88.8 Allergy status to other drugs, medicaments and biological substances; Z79.899 Other long term (current) drug therapy; Z79.01 Long term (current) use of anticoagulants; Z79.84 Long term (current) use of oral hypoglycemic drugs; Z79.4 Long term (current) use of insulin; Z79.82 Long term (current) use of aspirin; Z87.891 Personal history of nicotine dependence; Z82.3 Family history of stroke